=== PATIENT | male | born 1990 | race Caucasian/White ===

== ENCOUNTER 2016-06-23 08:10 | Emergency (ER) | payer BC ==
[~2016-06-23] VITALS: Ht 177.8 cm; Wt 65.9 kg
[~2016-06-23 08:10] MED LIST: ANTIBIOTIC; LEVAQUIN 5500 MG/TA1 PO; NO HOME MEDICATIONS; NO HOME MEDS; NORCO 325 MG-51 TAB PO; PHENERGAN 25 TA25 MG PO; ZITHROMAX500 M2 PO
[2016-06-23 08:13] VITALS: BP 135/84; PULSE 104; TEMP 100.8
[2016-06-23 08:44] LABS: BASO % 0.3 % (0.0-2.0); EOS % 0.1 % (0-4.0); GRAN # 9.1 (1.4-6.5); GRAN % 87.4 % (42.2-75.2); HEMATOCRIT 45.6 % (42.0-52.0); HEMOGLOBIN 15.8 g/dl (13.5-18.0); LYMPH # 0.4 (1.2-3.4); MEAN CELL VOLUME 89 fl (80.0-100.0); MEAN CORPUSCULAR HEMOGLOBIN 31 pg (27.0-31.0); MEAN CORPUSCULAR HGB CONC 35 g/dl (33.0-37.0); MEAN PLATELET VOLUME 9.6 fl (7.4-10.4); MONO # 0.8 (0.1-0.6); MONO % 7.7 % (1.7-9.3); PLATELET COUNT 188 K/mm3 (130-400); REDCELL DISTRIBUTION WIDTH-CV 11.5 % (11.5-14.5); WHITE BLOOD COUNT 10.4 K/mm3 (4.8-10.8)
[2016-06-23 08:57] LABS: ALBUMIN 4.7 gm/dL (3.5-5.0); BILIRUBIN,TOTAL 1.6 mg/dL (0.0-1.0); C-REACTIVE PROTEIN 3.8 mg/dL (0.0-0.9); CALCIUM 9.6 mg/dL (8.4-10.2); CREATININE, serum 0.82 mg/dL (0.66-1.25); POTASSIUM 3.8 mmol/L (3.4-5.0); TOTAL PROTEIN 7.9 gm/dL (6.4-8.2)
[2016-06-23] MEDS ORDERED: NORCO 325 MG-51 TAB PO (10:17)
[2016-06-23] MEDS ORDERED: ZOFRAN ODT4 MG PO (10:17)
== END 2016-06-23 10:38 | disposition home or self-care (01) ==
LOC: COL.ER 08:10
PROVIDERS: Emergency Medicine
DX: R11.2 Nausea with vomiting, unspecified (principal); R19.7 Diarrhea, unspecified; R10.31 Right lower quadrant pain
CPT/HCPCS: J1885; J2405; J3010; J7030; Q9967

== ENCOUNTER 2016-06-26 07:40 | Emergency (ER) | payer BC ==
[~2016-06-26] VITALS: Ht 177.8 cm; Wt 59.1 kg
[~2016-06-26 07:40] MED LIST changes: +ZOFRAN ODT4 MG PO
[2016-06-26 07:42] VITALS: TEMP 97.8
[2016-06-26 08:27] LABS: ADD PATHOLOGY DIFF REVIEW NO; HEMATOCRIT 44.5 % (42.0-52.0); HEMOGLOBIN 15.6 g/dl (13.5-18.0); MEAN CELL VOLUME 88 fl (80.0-100.0); MEAN CORPUSCULAR HEMOGLOBIN 31 pg (27.0-31.0); MEAN CORPUSCULAR HGB CONC 35 g/dl (33.0-37.0); MEAN PLATELET VOLUME 9.5 fl (7.4-10.4); PLATELET COUNT 181 K/mm3 (130-400); RED BLOOD COUNT 5.06 M/mm3 (4.20-5.60); REDCELL DISTRIBUTION WIDTH-CV 11.6 % (11.5-14.5); WHITE BLOOD COUNT 4.7 K/mm3 (4.8-10.8)
[2016-06-26 09:22] LABS: BAND 4 % (0-10); NEUTROPHILS 59 % (42.0-75.2); TOTAL CELLS COUNTED 100
[2016-06-26 09:23] LABS: PLATELET ESTIMATE NORMAL (NORMAL)
[2016-06-26 09:27] LABS: ADJUSTED CALCIUM 8.8 mg/dL (8.4-10.2); ALBUMIN 4.2 gm/dL (3.5-5.0); C-REACTIVE PROTEIN 1.5 mg/dL (0.0-0.9); CREATININE, serum 0.79 mg/dL (0.66-1.25); POTASSIUM 3.9 mmol/L (3.4-5.0); TOTAL PROTEIN 7.2 gm/dL (6.4-8.2)
[2016-06-26 10:32] VITALS: BP 117/72; PULSE 55
== END 2016-06-26 10:36 | disposition home or self-care (01) ==
LOC: COL.ER 07:40
PROVIDERS: Nurse Practitioner
DX: R10.32 Left lower quadrant pain (principal); R10.31 Right lower quadrant pain; R19.7 Diarrhea, unspecified; R10.13 Epigastric pain; M54.5 Low back pain; G89.29 Other chronic pain
CPT/HCPCS: J2270; J2405; J7030

== ENCOUNTER 2017-04-22 10:50 | Emergency (ER) | payer BC ==
[~2017-04-22] VITALS: Ht 177.8 cm; Wt 64.5 kg
[~2017-04-22 10:50] MED LIST changes: -AMITRIPTYLINE H25 M1 PO; -TYLENOL 500MG500 MG PO; -ZANAFLEX2 MG PO
[2017-04-22 10:57] VITALS: BP 133/67; TEMP 98.7
[2017-04-22] MEDS ORDERED: ZANAFLEX2 MG PO (11:00)
[2017-04-22] MEDS ORDERED: AMITRIPTYLINE H25 M1 PO (11:00)
[2017-04-22] MEDS ORDERED: TYLENOL 500MG500 MG PO (11:53)
[2017-04-22 14:02] VITALS: PULSE 90
== END 2017-04-22 14:02 | disposition home or self-care (01) ==
LOC: COL.ER 10:50
DX: M54.6 Pain in thoracic spine (principal); X58.XXXA Exposure to other specified factors, initial encounter
CPT/HCPCS: J1885

== ENCOUNTER → 2017-04-22 | Outpatient (CLI) | payer BC ==
[~2017-04-22] MED LIST changes: +AMITRIPTYLINE H25 M1 PO; +TYLENOL 500MG500 MG PO; +ZANAFLEX2 MG PO
== END ==
LOC: MHCPAIN 08:54
DX: G89.29 Other chronic pain (principal); M47.817 Spondylosis without myelopathy or radiculopathy, lumbosacral region; M53.3 Sacrococcygeal disorders, not elsewhere classified; M47.814 Spondylosis without myelopathy or radiculopathy, thoracic region
CPT/HCPCS: G0463

== ENCOUNTER 2018-03-10 03:29 | Emergency (ER) | payer BC ==
[~2018-03-10] VITALS: Ht 170.2 cm; Wt 65.9 kg
[~2018-03-10 03:29] MED LIST changes: +AMITRIPTYLINE H25 M1 PO; +TYLENOL 500MG500 MG PO; +ZANAFLEX2 MG PO
[2018-03-10 03:36] VITALS: TEMP 98
[2018-03-10 04:12] LABS: BASO # 0.1 (0.0-0.2); BASO % 0.7 % (0.0-2.0); EOS # 0.3 (0.0-0.7); EOS % 3.3 % (0-4.0); GRAN # 6.1 (1.4-6.5); GRAN % 71.3 % (42.2-75.2); HEMATOCRIT 43.3 % (42.0-52.0); HEMOGLOBIN 14.8 g/dl (13.5-18.0); LYMPH # 1.4 (1.2-3.4); LYMPH % 16.2 % (20.0-51.0); MEAN CELL VOLUME 90 fl (80.0-100.0); MEAN CORPUSCULAR HEMOGLOBIN 31 pg (27.0-31.0); MEAN CORPUSCULAR HGB CONC 34 g/dl (33.0-37.0); MEAN PLATELET VOLUME 9.1 fl (7.4-10.4); MONO # 0.7 (0.1-0.6); MONO % 8.1 % (1.7-9.3); PLATELET COUNT 199 K/mm3 (130-400); RED BLOOD COUNT 4.79 M/mm3 (4.20-5.60); REDCELL DISTRIBUTION WIDTH-CV 11.4 % (11.5-14.5)
[2018-03-10 04:24] LABS: ALANINE AMINOTRANSFERASE 43 U/L (21-72); ALBUMIN 4.4 gm/dL (3.5-5.0); ALKALINE PHOSPHATASE 50 U/L (50-136); ANION GAP 7 mmol/L (7-16); AST,SGOT 34 U/L (15-37); BILIRUBIN,TOTAL 0.5 mg/dL (0.0-1.0); BLOOD UREA NITROGEN 13 mg/dL (9-20); CALCIUM 9.2 mg/dL (8.4-10.2); CARBON DIOXIDE 29 mmol/L (22-30); CHLORIDE 108 mmol/L (98-107); CREATININE, serum 0.76 mg/dL (0.66-1.25); GLUCOSE 110 mg/dL (74-106); LIPASE 45 U/L (23-300); POTASSIUM 3.8 mmol/L (3.4-5.0); SODIUM 144 mmol/L (137-145); TOTAL PROTEIN 7.1 gm/dL (6.4-8.2)
[2018-03-10 04:26] LABS: C-REACTIVE PROTEIN < 0.5 mg/dL (0.0-0.9)
[2018-03-10 04:39] LABS: COLLECTION METHOD CLEAN CATCH
[2018-03-10 04:47] LABS: AMORPHOUS CRYSTAL Present /uL; PH 7 (5-8); SQUAMOUS EPITHELIAL None Seen /hpf; URINE APPEARANCE Turbid; URINE BACTERIA None Seen /hpf; URINE BILIRUBIN Negative (NEGATIVE); URINE BLOOD Negative (NEGATIVE); URINE COLOR Yellow; URINE GLUCOSE Negative (NEGATIVE); URINE KETONE Negative (NEGATIVE); URINE LEUKOCYTE ESTERASE Negative (NEGATIVE); URINE NITRATE Negative (NEGATIVE); URINE PROTEIN(semi-quant) 1+ (NEGATIVE); URINE RBC 0-2 /hpf; URINE UROBILINOGEN Negative (NEGATIVE)
[2018-03-10] MEDS ORDERED: CARAFATE 1GM1 G PO (06:40)
[2018-03-10] MEDS ORDERED: PROTONIX 40MG T40 MG PO (06:40)
[2018-03-10 07:10] VITALS: BP 103/76; PULSE 54
== END 2018-03-10 07:11 | disposition home or self-care (01) ==
LOC: COL.ER 03:29
PROVIDERS: Emergency Medicine
DX: R10.11 Right upper quadrant pain (principal)
CPT/HCPCS: J1170; J2405; J7030; Q9967

== ENCOUNTER 2018-11-19 19:27 | Emergency (ER) | payer BC ==
[~2018-11-19] VITALS: Ht 180.3 cm; Wt 65.9 kg
[~2018-11-19 19:27] MED LIST changes: +CARAFATE 1GM1 G PO; +PROTONIX 40MG T40 MG PO
[2018-11-19 19:41] VITALS: BP 127/75; TEMP 98.5
[2018-11-19] MEDS ORDERED: CEPHALEXIN500 M1 PO (20:23)
[2018-11-19 20:35] VITALS: PULSE 67
== END 2018-11-19 20:35 | disposition home or self-care (01) ==
LOC: COL.ER 19:27
DX: S61.042A Puncture wound with foreign body of left thumb without damage to nail, initial encounter (principal); W45.0XXA Nail entering through skin, initial encounter; Y92.59 Other trade areas as the place of occurrence of the external cause

== ENCOUNTER 2019-10-12 20:23 | Emergency (ER) | payer OTHER ==
[~2019-10-12] VITALS: Ht 177.8 cm; Wt 64.5 kg
[~2019-10-12 20:23] MED LIST changes: +CEPHALEXIN500 M1 PO
[2019-10-12 20:32] VITALS: TEMP 97.2
[2019-10-12] MEDS ORDERED: NORCO 325 MG-51 TAB PO (21:43)
[2019-10-12 22:05] VITALS: BP 118/70; PULSE 62
== END 2019-10-12 22:05 | disposition home or self-care (01) ==
LOC: COL.ER 20:23
DX: S42.001A Fracture of unspecified part of right clavicle, initial encounter for closed fracture (principal); V19.9XXA Pedal cyclist (driver) (passenger) injured in unspecified traffic accident, initial encounter
CPT/HCPCS: J3010